=== PATIENT | female | born 1955 | race Caucasian/White ===

== ENCOUNTER → 2016-10-27 | Outpatient (CLI) | payer BC ==
--- NOTE | 2016-10-31 12:13 | RADIOLOGY REPORT PS360 ---
DIG MAMM-SCREEN AMBROSIO W/CAD CAD Screening ORDERING PHYSICIAN : Juan Luis Perez MD PATIENT AGE: 61 years GENDER: Female COMPARISON: Previous mammograms: October 2015, 2014, August 2013Jun2012 INDICATION: Routine screening taking estradiol. No new complaints. Noncontributory family history TECHNIQUE: Standard CC and MLO images were obtained. R2 CAD reviewed. FINDINGS: Minimal fibroglandular elements with fairly Low-density breast with no dominant mass nor suspicious calcifications . No architectural distortion. RIGHT BREAST: Minor nodularity at the lateral retroareolar region is stable since prior studies dating back to 2012. No new areas of concern LEFT BREAST: The small ~8 mm nodular density at the lateral left breast is unchanged since 2014 and July 2012 prior mammogram studies. . No new areas concern on the left breast. Follow-up in one year adequate IMPRESSION: No significant new findings. Follow-up in one year recommended. Stable minor nodularity bilaterally BI-RADS CATEGORY: 2_Benign RECOMMENDED FOLLOWUP: 12M 12 MONTH FOLLOW-UP (A letter has been sent to the patient regarding results of the study.)
== END ==
LOC: RAD 09:49
DX: Z12.31 Encounter for screening mammogram for malignant neoplasm of breast (principal)
CPT/HCPCS: G0202